=== PATIENT | female | born 1980 ===

== ENCOUNTER → 2024-12-18 | Outpatient (CLI) | payer MEDICAID ==
[~2024-12-18] VITALS: Ht 172.7 cm; Wt 112.5 kg
--- NOTE | 2024-12-20 08:47 | DVHSR ---
APPROVED REPORT EXAM: Two-dimensional and M-mode echocardiogram with Doppler and color Doppler. DIMENSIONS LVDd4.8 (3.8-5.7cm)LA (2D)4.6 (1.9-4.0cm)Aortic Root2.9 (2.0-3.7cm) LVDs3.4 (2.5-4.0cm)LA (MM) (1.9-4.0cm)Aortic Cusp Exc1.8 (1.5-2.0cm) EF (%) 55.0 (55-70%)Rt. Atrium3.4 (1.9-4.0cm)Asc. Aorta2.7 cm IVSd0.9 (0.7-1.1cm)RV (D)3.0 (1.8-2.4cm) PWd1.1 (0.7-1.1cm) Mitral Valve MitralMitral Stenosis E wave0.71m/sMV Mean GR.mmHg A wave0.81m/sMV Peak GR.mmHg E/A ratio0.92D MVAcm2 DECEL [id number] 1/2 Tim[place] Aortic Valve Aortic ValveAortic Stenosis V10.80m/Aamir Mean GR.mmHg V21.06m/Aamir Peak GR.5mmHg LVOT Diameter2.1 (1.8-2.4cm)Doppler AVA2.61cm2 Pulmonic Valve V20.83m/s Tricuspid Valve TR Velocity2.19m/s [id number] LEFT VENTRICLE The left ventricle is normal size. The left ventricle is normal in structure and function. The Ejection Fraction is within normal limits. The Ejection Fraction is 55-60%. RIGHT VENTRICLE The right ventricle is borderline dilated. ATRIA The left atrium is borderline dilated. The right atrium size is normal. The interatrial septum is intact with no evidence for an atrial septal defect. MITRAL VALVE The mitral valve is normal in structure and function. There is no mitral valve regurgitation noted. PULMONIC VALVE The pulmonic valve is not well visualized. TRICUSPID VALVE The tricuspid valve is grossly normal. There is trace to mild tricuspid regurgitation. AORTIC VALVE The aortic valve opens well. No aortic regurgitation is present. GREAT VESSELS The aortic root is normal size. PERICARDIAL EFFUSION There is no pericardial effusion. Other Information Quality : Technically LimitedRhythm : Technically limited study due to body habitus. Conclusion EF >55% LAE
--- NOTE | 2024-12-27 12:43 | DVHSR ---
APPROVED REPORT Exam: Nuclear Stress Test Indication: Screening for CAD Ht: 5 ft 8 in Wt: 248 lbs BSA: 2.24 m2 HR: 85 bpm BP: 139/80 mmHg BMI: 37.70 Rhythm: NSR Medical History Medical History: HTN Medications: Wegovy, Lorazepam, Pantoprazole, Hydralazine, Aspirin Allergies: No known drug allergies Cardiac Risk Factors: Family Hx of CAD Stress Test Details Stress Test: Exercise stress testing was performed using a Yeison protocol. HR Resting HR: 85 bpmMax Heart Rate (APMHR): 178.195446 bpm Max HR Achieved: 153 bpmTarget HR (85% APMHR): 151.018975 bpm % of APMHR: 85.96 Recovery HR: 104 bpm HR response to stress: Normal HR response to stress BP Resting BP: 139/80 mmHg Max BP: 184/64 mmHg Recovery BP: 138/66 mmHg BP response to stress: Exaggerated response ECG Resting ECG: Sinus Rhythm Stress ECG: Sinus Tachycardia Arrhythmia: PACs Recovery ECG: Sinus Tachycardia Clinical Reason for Termination: Target HR achieved Stress Symptoms: None Exercise duration: 6 min 55 sec Exercise capacity: 7.0 METs Stress ECG Conclusion NON ISCHEMIC CLINICAL RESPONSE NON ISCHEMIC ECG RESPONSE NO PERFUSION DEFECT NOTED DURING STRESS CARDIOLITE EF >55% LESS THAN 10% LIKELIHOOD FOR STRESS INDUCED ISCHEMIA NM EXAM: Myocardial Perfusion REST/STRESS Imaging Protocol: Rest Tc-99m/Stress Tc-99m 1 day Resting Data Rest SPECT myocardial perfusion imaging was performed in supine position 30 minutes following the int ravenous injection of 11 mCi of Tc-99m Sestamibi. Time of rest injection: 1337 Date: 12/18/2024 Time of rest imagin Date: 12/18/2024 Administration Route: IV Administration Site: Left Hand Exercise Stress At peak stress, the patient was injected intravenously with 33 mCi of Tc-99m Sestamibi. Time of stress injection: 1440 Date: 12/18/2024 Time of stress imagin Date: 12/18/2024 Administration Route: IV Administration Site: Left Hand Heart Rate at time of stress injection: 153 bpm. Patient continued to exercise for 1 minute(s). Gated Stress SPECT was performed 15 minutes after stress injection. The images were gated to evaluate regional wall motion and calculate left ventricular ejection fracti on. Comments Cardiolite injection at 5 minutes, 52 seconds into test. Study Data Post stress, the left ventricular ejection was >55%.. Nuclear Conclusion NON ISCHEMIC CLINICAL RESPONSE NON ISCHEMIC ECG RESPONSE NO PERFUSION DEFECT NOTED DURING STRESS CARDIOLITE EF >55% LESS THAN 10% LIKELIHOOD FOR STRESS INDUCED ISCHEMIA
== END | disposition home or self-care (01) ==
LOC: Rad HDHVI 13:15
PROVIDERS: ATTEND Internal Medicine Cardiovascular Disease
DX: Z13.6 Encounter for screening for cardiovascular disorders (principal); I49.1 Atrial premature depolarization; I07.1 Rheumatic tricuspid insufficiency; R00.0 Tachycardia, unspecified; I10 Essential (primary) hypertension; Z82.49 Family history of ischemic heart disease and other diseases of the circulatory system
CPT/HCPCS: 78452; 93017; 93306; A9500; 96374